=== PATIENT | male | born 1985 | race Caucasian/White ===

== ENCOUNTER 2020-01-13 02:54 | Emergency (ER) | payer OTHER ==
[~2020-01-13] VITALS: Ht 180.3 cm; Wt 86.2 kg
[2020-01-13] MEDS ORDERED: KEFLEX500 M1 PO (04:46)
[2020-01-13 04:58] VITALS: BP 151/74
== END 2020-01-13 05:00 | disposition home or self-care (01) ==
LOC: M.ERS 02:54
DX: S09.93XA Unspecified injury of face, initial encounter (principal); K02.9 Dental caries, unspecified; F17.210 Nicotine dependence, cigarettes, uncomplicated; Z88.6 Allergy status to analgesic agent; Z88.8 Allergy status to other drugs, medicaments and biological substances; Y04.0XXA Assault by unarmed brawl or fight, initial encounter; Y93.89 Activity, other specified; Y92.89 Other specified places as the place of occurrence of the external cause; Y99.8 Other external cause status